=== PATIENT | male | born 1985 | race Caucasian/White ===

== ENCOUNTER 2016-06-17 15:50 | Emergency (ER) | payer OTHER ==
[~2016-06-17] VITALS: Ht 170.2 cm; Wt 71.3 kg
[2016-06-17] MEDS ORDERED: NARCAN4 MG NS (17:39)
[2016-06-17 17:46] VITALS: BP 136/79
== END 2016-06-17 17:46 | disposition home or self-care (01) ==
LOC: EME 15:50
DX: T40.1X1A Poisoning by heroin, accidental (unintentional), initial encounter (principal); F17.200 Nicotine dependence, unspecified, uncomplicated
CPT/HCPCS: 93005; 99281; 99284